=== PATIENT | male | born 1980 | race Caucasian/White ===

== ENCOUNTER 2023-09-03 22:59 | Emergency (ER) | payer SELFPAY ==
[2023-09-03] MEDS: Bacitracin Oint 1 GM U/D Packet TOP ONE (23:48)
[2023-09-03] MEDS: Lidocaine 1% 5 ML VIAL INJECT ONE (23:48)
[2023-09-04] MEDS: Take Home: Cephalexin 500 MG Cap, 6 Cap Pack PO ONE (00:02)
== END 2023-09-04 00:01 | disposition home or self-care (01) ==
LOC: DL.ED 22:59
DX: S61.412A Laceration without foreign body of left hand, initial encounter (principal); Z86.16 Personal history of COVID-19; Z88.0 Allergy status to penicillin; W26.0XXA Contact with knife, initial encounter; Y93.G9 Activity, other involving cooking and grilling
CPT/HCPCS: 12002; 99282; A9270; J3490